=== PATIENT | female | born 1985 | race Caucasian/White ===

== ENCOUNTER 2016-06-04 09:42 | Emergency (ER) | payer BC ==
[2016-06-04 09:55] VITALS: BP 127/67
[2016-06-04] MEDS ORDERED: Ibuprofen TAB* 600 MG PO ONE (10:33)
--- NOTE | 2016-06-04 10:39 | UC ---
Lower Extremity/Ankle HPI - HPI Summary HPI Summary: 31 yo female s/p inversion injury to right foot last PM stepped in pot hole can bear wt with a limp no hx prior right foot/ankle injury - History of Current Complaint Chief Complaint: UCLowerExtremity Stated Complaint: RIGHT ANKLE PAIN Time Seen by Provider: 06/04/16 10:26 Hx Obtained From: Patient Hx Last Menstrual Period: 05/23/16 Onset/Duration: Sudden Onset Severity Initially: Moderate Severity Currently: Moderate Pain Intensity: 4 Pain Scale Used: 0-10 Numeric Aggravating Factor(s): Standing, Ambulation Alleviating Factor(s): Rest, Elevation Able to Bear Weight: Yes - with limp - Allergies/Home Medications Allergies/Adverse Reactions: Allergies Allergy/AdvReac Type Severity Reaction Status Date / Time No Known Allergies Allergy Verified 12/29/15 13:53 Home Medications: Home Medications NK [No Home Medications Reported] 06/04/16 [History Confirmed 06/04/16] PMH/Surg Hx/FS Hx/Imm Hx Previously Healthy: Yes Cardiovascular History Of: Denies: Hypertension, Pacemaker/ICD, Congestive Heart Failure Respiratory History Of: Denies: Asthma, Bronchitis - Surgical History Surgical History: None - Family History Known Family History: Positive: Hypertension - Social History Alcohol Use: Occasionally Substance Use Type: None Smoking Status (MU): Never Smoked Tobacco - Immunization History Most Recent Influenza Vaccination: NOT THIS SEASON Review of Systems Constitutional: Negative Skin: Negative Eyes: Negative ENT: Negative Respiratory: Negative Cardiovascular: Negative Gastrointestinal: Negative Genitourinary: Negative Motor: Negative Neurovascular: Negative Musculoskeletal: Arthralgia Neurological: Negative Psychological: Negative All Other Systems Reviewed And Are Negative: Yes Physical Exam Triage Information Reviewed: Yes Appearance: Well-Appearing, No Pain Distress, Well-Nourished Vital Signs: Initial Vital Signs Temp 98.9 F 06/04/16 09:48 Pulse 85 06/04/16 09:48 Resp 16 06/04/16 09:48 BP 127/67 06/04/16 09:48 Pulse Ox 97 06/04/16 09:48 Vital Signs Reviewed: Yes Eyes: Positive: Conjunctiva Clear ENT: Positive: Hearing grossly normal, Pharynx normal, Nasal congestion, Nasal drainage. Negative: Tonsillar exudate, Trismus, Muffled/hoarse voice Dental Exam: Normal Neck: Positive: Supple Respiratory: Positive: Lungs clear, Normal breath sounds, No respiratory distress Cardiovascular: Positive: RRR, No Murmur Musculoskeletal: Positive: Edema @, Other: - see image Neurological Exam: Normal Neurological: Positive: Alert Psychological: Positive: Age Appropriate Behavior Skin: Positive: rashes Lower Extremity Course/Dx - Course Course Of Treatment: advised to get rechecked in 2 weeks if not better. she has crutches - Differential Dx/Diagnosis Provider Diagnoses: right ankle sprain Discharge - Discharge Plan Condition: Stable Disposition: HOME Patient Education Materials: Ankle Sprain (ED) Referrals: No Primary Care Phys,NOPCP [Primary Care Provider] - Additional Instructions: rest elevate ice bola gel splint use your crutches if necessary advil 3 4x day with food for pain Images Feet (Multiple View): 1 - tender and swollen/antalgic gait
--- NOTE | 2016-06-04 11:06 | RAD ---
INDICATION: Right ankle injury. TECHNIQUE: 3 views of the right ankle were obtained. FINDINGS: Soft tissue swelling is noted along the anterolateral aspect of the ankle. No fracture is seen. Joint spaces appear maintained. IMPRESSION: SOFT TISSUE SWELLING, NO FRACTURE IS SEEN.
== END 2016-06-04 11:32 | disposition home or self-care (01) ==
LOC: UCCORT 09:42
DX: S93.401A Sprain of unspecified ligament of right ankle, initial encounter (principal); W17.2XXA Fall into hole, initial encounter; R09.81 Nasal congestion; R03.0 Elevated blood-pressure reading, without diagnosis of hypertension
CPT/HCPCS: 99213; A9270-GY; G0463

== ENCOUNTER 2017-05-09 09:32 | Emergency (ER) | payer BC ==
[2017-05-09 12:43] VITALS: BP 149/84
--- NOTE | 2017-05-09 13:02 | UC ---
Respiratory Complaint HPI - HPI Summary HPI Summary: Congestion and cough for about 4 days. No known fever. Chills and warmth two days ago. Today symptoms are better somewhat. She has no chronic lung disease. - History of Current Complaint Chief Complaint: UCRespiratory Stated Complaint: SINUSES,LAROSE,CHEST WILFRED Time Seen by Provider: 05/09/17 12:43 Hx Obtained From: Patient Hx Last Menstrual Period: 05/06/17 ?: No Onset/Duration: Gradual Onset, Lasting Days Timing: Constant Severity Initially: Moderate Severity Currently: Moderate Pain Intensity: 8 Character: Cough: Nonproductive Aggravating Factors: Deep Breaths, Recumbent Position Alleviating Factors: Upright Position, Spontaneous Resolution Associated Signs And Symptoms: Positive: Chills, Pleuritic Chest Pain, URI, Nasal Congestion, Sinus Discomfort. Negative: Hemoptysis, Dizziness, Calf Pain , Calf Swelling - Allergies/Home Medications Allergies/Adverse Reactions: Allergies Allergy/AdvReac Type Severity Reaction Status Date / Time No Known Allergies Allergy Verified 05/09/17 12:34 Home Medications: Home Medications Dm/Acetaminophen/Doxylamine [Cold/Flu Relief Multi-Sym] 1 liq PO PRN 05/09/17 [ History] Ibuprofen TAB* [Advil TAB*] 600 mg PO PRN 05/09/17 [History] Nuva Ring 05/09/17 [History] PMH/Surg Hx/FS Hx/Imm Hx Previously Healthy: Yes - Surgical History Surgical History: None - Family History Known Family History: Positive: Hypertension - Social History Occupation: Employed Full-time Alcohol Use: Occasionally Substance Use Type: None Smoking Status (MU): Never Smoked Tobacco - Immunization History Most Recent Influenza Vaccination: NOT THIS SEASON Review of Systems ENT: Sinus Congestion Respiratory: Cough All Other Systems Reviewed And Are Negative: Yes Physical Exam Triage Information Reviewed: Yes Appearance: Well-Appearing, No Pain Distress, Well-Nourished Vital Signs: Initial Vital Signs Temp 99.8 F 05/09/17 12:36 Pulse 87 05/09/17 12:36 Resp 18 05/09/17 12:36 BP 149/84 05/09/17 12:36 Pulse Ox 98 05/09/17 12:36 Vital Signs Reviewed: Yes Eyes: Positive: Conjunctiva Clear ENT: Positive: Normal ENT inspection, Nasal congestion, TMs normal, Uvula midline. Negative: TM bulging, TM dull, TM red, Tonsillar swelling, Tonsillar exudate, Trismus, Sinus tenderness Neck: Positive: Supple, Nontender, No Lymphadenopathy Respiratory: Positive: Normal breath sounds, No respiratory distress, No accessory muscle use. Negative: Respiratory distress, Decreased breath sounds, Accessory muscle use, Crackles, Rhonchi, Stridor Cardiovascular: Positive: No Murmur, Pulses Normal Abdomen Description: Positive: No Organomegaly, Soft. Negative: Distended, Guarding Musculoskeletal: Positive: Strength Intact, ROM Intact, No Edema Neurological: Positive: Alert, Muscle Tone Normal. Negative: Fatigued Psychological: Positive: Age Appropriate Behavior Skin: Negative: rashes UC Diagnostic Evaluation - Laboratory O2 Sat by Pulse Oximetry: 98 Respiratory Course/Dx - Course Course Of Treatment: No signs of bacterial infection. She will return for new fever, new pain or new productive cough. supportive care and decongestants until then. - Differential Dx/Diagnosis Provider Diagnoses: uri Discharge - Discharge Plan Condition: Good Disposition: HOME Patient Education Materials: Upper Respiratory Infection (ED) Referrals: No Primary Care Phys,NOPCP [Primary Care Provider] - Additional Instructions: Decongestants and motrin. Return for facial or ear pain or new onset fever.
== END 2017-05-09 13:29 | disposition home or self-care (01) ==
LOC: UCCORT 09:32
DX: J06.9 Acute upper respiratory infection, unspecified (principal)
CPT/HCPCS: 87502; 99211; G0463

== ENCOUNTER 2017-07-01 14:17 | Emergency (ER) | payer BC ==
[2017-07-01 14:47] VITALS: BP 142/72
--- NOTE | 2017-07-01 15:05 | UC ---
Skin Complaint HPI - HPI Summary HPI Summary: 32 female presents to urgent care complains of a rash over her right breast that began one week ago and has worsened since. Has not taken any medication to help with the rash. States the rash is itchy however painful and is a burning sensation. Has spread to her back. No drainage or other complaints at this time. Did have chickenpox as a child. States sister had a rash that was diagnosed as shingles and her ears looks very similar. No PMHx. No fever/chills , no MRSA history. Has never had anything like this before. - History of Current Complaint Chief Complaint: ERICkin Stated Complaint: SKIN COMPLAINT (PERSONAL) Hx Obtained From: Patient Hx Last Menstrual Period: 05/06/17 Onset/Duration: Sudden Onset, Lasting Days, Still Present, Worse Since Skin Exposure Onset/Duration: Days Ago - ~6 Timing: Constant Onset Severity: Mild Current Severity: Mild Pain Intensity: 3 Pain Scale Used: 0-10 Numeric Location: Discrete - Over right breast area and right back Character: Pruritus, Pain, Redness, Raised, Painful Aggravating Factor(s): Nothing Alleviating Factor(s): Nothing Associated Signs & Symptoms: Positive: Negative - Allergy/Home Medications Allergies/Adverse Reactions: Allergies Allergy/AdvReac Type Severity Reaction Status Date / Time No Known Allergies Allergy Verified 07/01/17 14:48 Review of Systems Constitutional: Negative Skin: Rash Respiratory: Negative Cardiovascular: Negative Musculoskeletal: Negative Neurological: Negative All Other Systems Reviewed And Are Negative: Yes PMH/Surg Hx/FS Hx/Imm Hx - Additional Past Medical History Additional PMH: denies past medical history - Surgical History Surgical History: None - Family History Known Family History: Positive: Hypertension - Social History Alcohol Use: Occasionally Substance Use Type: None Smoking Status (MU): Never Smoked Tobacco - Immunization History Most Recent Influenza Vaccination: NOT THIS SEASON Physical Exam Triage Information Reviewed: Yes Appearance: Well-Appearing, No Pain Distress, Well-Nourished Vital Signs: Initial Vital Signs Temp 98.5 F 07/01/17 14:40 Pulse 82 07/01/17 14:40 Resp 14 07/01/17 14:40 BP 142/72 07/01/17 14:40 Pulse Ox 98 07/01/17 14:40 Vital Signs Reviewed: Yes ENT: Positive: Normal ENT inspection, Hearing grossly normal, Pharynx normal Neck: Positive: Supple Respiratory: Positive: Chest non-tender, Lungs clear, Normal breath sounds Cardiovascular: Positive: RRR, No Murmur, Pulses Normal Neurological Exam: Normal, Other - hypersensitivity over rash area when tested with sharp sensation (Toothpick) Neurological: Positive: Alert, Muscle Tone Normal Skin: Positive: rashes - herpatiform-like rash, erythematous papules/ grouped vesicles over right breast and right back following thoracic T3/T4 dermatome area Course/Dx - Course Course Of Treatment: appears to be suffering from shingles due to history, symptoms and physical exam. will treat with valtrex. gabapentin for discomfort at bedtime. patient agrees and understands plan. no other concerns at this time. follow up with pcp. aware of worsening signs and symptoms to watch out for. - Differential Diagnoses - Skin Complaint Differential Diagnoses: Varicella Zoster - Diagnoses Provider Diagnoses: herpes zoster-shingles Discharge - Sign-Out/Discharge Documenting (check all that apply): Discharge - Discharge Plan Condition: Good Disposition: HOME Patient Education Materials: Shingles (ED) Referrals: [facility] [place] [facility] [Outside] Additional Instructions: Take prescribed medication to help with shingles infection. gabapentin for pain at bedtime. Any new or worsening symptoms please seek medical attention promptly. Follow up with PCP to ensure improvement. - Billing Disposition and Condition Condition: GOOD Disposition: HOME
== END 2017-07-01 15:17 | disposition home or self-care (01) ==
LOC: UCCORT 14:17
DX: B01.9 Varicella without complication (principal)
CPT/HCPCS: 99212; G0463